=== PATIENT | male | born 1995 | race Caucasian/White ===

== ENCOUNTER 2018-08-23 20:49 | Emergency (ER) | payer MEDICAID ==
[~2018-08-23] VITALS: Ht 172.7 cm; Wt 86.2 kg
[~2018-08-23 20:49] MED LIST: CETI10TA14 PO; CHOL400C8 PO; IBUP-1984 PO; METH20CP12 PO; PANT-47 PO; SERT25TA5 PO; ZIPR40CA14 PO
[2018-08-23 21:04] VITALS: BP 143/95
[2018-08-23] MEDS ORDERED: hydrOXYzine 25 MG tablet PO ONE (21:20)
[2018-08-23] MEDS ORDERED: HYDR50TA65 PO (21:25)
== END 2018-08-23 21:55 | disposition home or self-care (01) ==
LOC: ER 20:50
DX: F41.9 Anxiety disorder, unspecified (principal); E66.9 Obesity, unspecified; I10 Essential (primary) hypertension; K21.9 Gastro-esophageal reflux disease without esophagitis; F90.8 Attention-deficit hyperactivity disorder, other type; F31.9 Bipolar disorder, unspecified; Z79.899 Other long term (current) drug therapy
CPT/HCPCS: 99284; Q0177

== ENCOUNTER 2018-12-04 18:00 | Emergency (ER) | payer MEDICAID ==
[~2018-12-04] VITALS: Ht 175.3 cm; Wt 88.0 kg
[~2018-12-04 18:00] MED LIST changes: +HYDR50TA65 PO
[2018-12-04 18:31] VITALS: BP 155/102
[2018-12-04] MEDS ORDERED: PENI500T2 PO (18:39)
== END 2018-12-04 18:53 | disposition home or self-care (01) ==
LOC: ER 18:00
DX: K04.7 Periapical abscess without sinus (principal); K02.9 Dental caries, unspecified; I10 Essential (primary) hypertension; K21.9 Gastro-esophageal reflux disease without esophagitis; Z79.2 Long term (current) use of antibiotics; Z79.899 Other long term (current) drug therapy; Z86.73 Personal history of transient ischemic attack (TIA), and cerebral infarction without residual deficits
CPT/HCPCS: 99283

== ENCOUNTER 2019-01-03 04:13 | Emergency (ER) | payer MEDICAID ==
[~2019-01-03] VITALS: Ht 175.3 cm; Wt 89.1 kg
[~2019-01-03 04:13] MED LIST changes: +PENI500T2 PO
[2019-01-03 04:15] VITALS: BP 141/100
[2019-01-03] MEDS ORDERED: PENI500T2 PO (04:29)
[2019-01-03] MEDS ORDERED: LORazepam 1 MG tablet PO ONE (04:30)
== END 2019-01-03 04:52 | disposition home or self-care (01) ==
LOC: ER 04:14
DX: S13.4XXA Sprain of ligaments of cervical spine, initial encounter (principal); F41.9 Anxiety disorder, unspecified; K02.9 Dental caries, unspecified; I10 Essential (primary) hypertension; K21.9 Gastro-esophageal reflux disease without esophagitis; F31.9 Bipolar disorder, unspecified; Z79.899 Other long term (current) drug therapy; X58.XXXA Exposure to other specified factors, initial encounter; Y93.89 Activity, other specified; Y92.89 Other specified places as the place of occurrence of the external cause; Y99.9 Unspecified external cause status
CPT/HCPCS: 99283

== ENCOUNTER 2019-01-16 02:06 | Emergency (ER) | payer MEDICAID ==
[~2019-01-16] VITALS: Ht 175.3 cm; Wt 90.9 kg
[~2019-01-16 02:06] MED LIST changes: -PENI500T2 PO
[2019-01-16 02:10] VITALS: BP 156/100
== END 2019-01-16 02:30 | disposition home or self-care (01) ==
LOC: ER 02:07
DX: R51 Headache (principal); I10 Essential (primary) hypertension; K21.9 Gastro-esophageal reflux disease without esophagitis; Z79.899 Other long term (current) drug therapy; Z86.73 Personal history of transient ischemic attack (TIA), and cerebral infarction without residual deficits
CPT/HCPCS: 99281

== ENCOUNTER 2019-01-23 23:02 | Emergency (ER) | payer MEDICAID ==
[~2019-01-23] VITALS: Ht 175.3 cm; Wt 90.0 kg
[2019-01-23 23:07] VITALS: BP 139/84
[2019-01-24] MEDS: pantoprazole 40mg Tablet.DR PO SCH (00:42)
== END 2019-01-24 00:46 | disposition home or self-care (01) ==
LOC: ER 23:03
DX: F41.9 Anxiety disorder, unspecified (principal); R10.12 Left upper quadrant pain; I10 Essential (primary) hypertension; K21.9 Gastro-esophageal reflux disease without esophagitis; F31.9 Bipolar disorder, unspecified; Z79.899 Other long term (current) drug therapy
CPT/HCPCS: 99282

== ENCOUNTER 2019-07-12 14:22 | Emergency (ER) | payer MEDICAID ==
[~2019-07-12] VITALS: Ht 172.7 cm; Wt 84.5 kg
[~2019-07-12 14:22] MED LIST changes: +ONDA4TAB12 PO
--- NOTE | 2019-07-12 14:32 | NUR ---
BIB EMS WITH C/O RAPID HEART RATE TODAY AND ANXIETY. TOOK MEDICATION TO CONTROL HEART RATE WITH NO RESULTS. STATES HE HAS BEEN HAVING CHANGE IN COLOR OF STOOLS STARTING YESTERDAY-WHITE IN COLOR. NO PAIN AT THIS TIME. RESP UNLABORED.
[2019-07-12] MEDS ORDERED: normal saline 1000ML IV soln IVB ONE (14:40)
[2019-07-12 15:05] LABS: BASOPHILS # (AUTO) 0.1 X10'3 (0-0.2); EOSINOPHILS # (AUTO) 0.2 X10'3 (0-0.9); EOSINOPHILS % (AUTO) 2.5 % (0-6); HEMATOCRIT 50.8 % (42.0-52.0); HEMOGLOBIN 17.3 g/dl (14.0-17.9); LYMPHOCYTES # (AUTO) 2.2 X10'3 (1.1-4.8); LYMPHOCYTES % (AUTO) 24.1 % (21-51); MEAN CORPUSCULAR HEMOGLOBIN 29.2 PG (27.0-31.0); MEAN CORPUSCULAR HGB CONC 34.2 g/dL (33.0-36.5); MEAN CORPUSCULAR VOLUME 85.3 FL (78-98); MEAN PLATELET VOLUME 8.2 FL (7.4-10.4); MONOCYTES # (AUTO) 0.8 X10'3 (0-0.9); MONOCYTES % (AUTO) 8.9 % (2-12); NEUTROPHILS # (AUTO) 5.9 X10'3 (1.8-7.7); NEUTROPHILS % (AUTO) 63.5 % (42-75); PLATELET COUNT 359 X10'3 (140-440); RED BLOOD COUNT 5.95 X10'6 (4.70-6.10); RED CELL DISTRIBUTION WIDTH 13.5 % (11.5-14.5); WHITE BLOOD COUNT 9.2 X10'3 (4.5-11.0)
[2019-07-12] MEDS ORDERED: metoprolol tartrate 1mg/ml inj IV ONE ×2 (15:05→16:40)
[2019-07-12 15:25] LABS: ALANINE AMINOTRANSFERASE 35 U/L (12-78); ALBUMIN/GLOBULIN RATIO 0.9 (1.1-1.5); ALKALINE PHOSPHATASE 99 IU/L (46-116); ANION GAP 11 (8-16); ASPARTATE AMINO TRANSFERASE 16 U/L (10-37); BILIRUBIN,TOTAL 1.1 MG/DL (0.1-1.0); BLOOD UREA NITROGEN 14 MG/DL (7-18); BUN/CREATININE RATIO 12.2 (5.4-32.0); CALCIUM 9.5 MG/DL (8.5-10.1); CHLORIDE 106 MMOL/L (99-107); CREATININE 1.15 MG/DL (0.60-1.10); ETHANOL < 0.010 GM/DL (0.0-0.010); GLUCOSE 129 MG/DL (70-104); MAGNESIUM 1.9 MG/DL (1.5-2.4); POTASSIUM 3.9 MMOL/L (3.5-5.1); SODIUM 140 MMOL/L (135-145); TOTAL CARBON DIOXIDE 22.7 MMOL/L (24-32); TOTAL PROTEIN 8.6 G/DL (6.4-8.2); eGFR 78 ML/MIN
[2019-07-12 16:36] LABS: CLARITY,URINE CLEAR (Clear); COLOR,URINE YELLOW (Yellow); GLUCOSE, URINE NEGATIVE (Neg); KETONES,URINE NEGATIVE (Neg); LEUKOCYTE ESTERASE ,URINE NEGATIVE (Neg); NITRITES, URINE NEGATIVE (Neg); OCCULT BLOOD,URINE NEGATIVE (Neg); PH,URINE 5.5 (4.8-8.0); PROTEIN,URINE NEGATIVE (Neg); UROBILINOGEN,URINE 0.2 E.U/dL (0.2-1.0)
[2019-07-12 16:44] LABS: UA COLLECTION TYPE CLN CATCH MIDSTREAM
[2019-07-12 16:49] LABS: URINE AMPHETAMINE SCREEN NEGATIVE (Neg); URINE BARBITUATE SCREEN NEGATIVE (Neg); URINE BENZODIAZEPINES SCREEN NEGATIVE (Neg); URINE CANNABINOID SCREEN NEGATIVE (Neg); URINE COCAINE SCREEN NEGATIVE (Neg); URINE METHADONE SCREEN NEGATIVE (Neg); URINE OPIATE SCREEN NEGATIVE (Neg); URINE PHENCYCLIDINE SCREEN NEGATIVE (Neg)
[2019-07-12 17:04] VITALS: BP 124/79
== END 2019-07-12 17:06 | disposition home or self-care (01) ==
LOC: ER 14:23
DX: E86.0 Dehydration (principal); R00.0 Tachycardia, unspecified; I10 Essential (primary) hypertension; K21.9 Gastro-esophageal reflux disease without esophagitis; F31.9 Bipolar disorder, unspecified; Z79.899 Other long term (current) drug therapy
CPT/HCPCS: 36415; 80053; 80305; 80320; 81003; 83735; 84484; 85025; 93005; 96361; 96374; 96376; 99284; J7030; J3490